=== PATIENT | female | born 1960 | race Asian ===

== ENCOUNTER 2018-09-15 06:05 | Inpatient (IN) | payer SELFPAY, OTHER, MEDICAID ==
[2018-09-15] MEDS: ALBUTEROL 0.083% (NEB) 2.5 MG/3 ML AMP NEB (07:22)
[2018-09-15 08:34] LABS: ADD MAN DIFF? NO
[2018-09-15 08:41] LABS: WHITE BLOOD COUNT 9.9 10^3/ul (4.8-10.8)
[2018-09-15 08:41] LABS: AADO2 Arterial 36.2 mmHg (7.0-24.0); Allen Test ACCEPTAB; Arterial Blood Gas Oxygen Sat 92.8 mmHG (95.0-98.0); Arterial COHb 0.6 % (0.0-3.0); Arterial HCO3 27.6 mmol/L (22.0-26.0); Arterial MetHb 0.3 % (0.0-1.5); Arterial Total Hemglobin 15.6 g/dl (12.0-18.0); Arterial pCO2 42.1 mmhg (35-45); BASOPHILS % 0.3 % (0.0-2.0); EOSINOPHILS % 0.1 % (0.0-7.0); HEMATOCRIT 47.6 % (37.0-47.0); HEMOGLOBIN 15.1 g/dl (12.0-16.0); LYMPHOCYTES # 1.7 10^3/ul (0.8-2.9); LYMPHOCYTES % 17.2 % (15.0-51.0); MEAN CORPUSCULAR HEMOGLOBIN 31.9 pg (29.0-33.0); MEAN CORPUSCULAR HGB CONC 31.7 g/dl (32.0-37.0); MEAN CORPUSCULAR VOLUME 100.4 fl (82.0-101.0); MEAN PLATELET VOLUME 8.9 fl (7.4-10.4); MODE ROOM AIR; MONOCYTE # 0.9 10^3/ul (0.3-0.9); MONOCYTES % 9.5 % (0.0-11.0); NEUTROPHIL # 7.2 10^3/ul (1.6-7.5); NEUTROPHILS % 72.5 % (39.0-77.0); PLATELET COUNT 264 10^3/UL (140-415); RED BLOOD COUNT 4.74 10^6/ul (4.20-5.40); RED CELL DISTRIBUTION WIDTH 11.6 % (11.5-14.5); Site Left Radial
[2018-09-15 09:04] LABS: ANION GAP 8 (5-13); BLOOD UREA NITROGEN 4 mg/dl (7-20); CALCIUM 9.4 mg/dl (8.4-10.2); CARBON DIOXIDE 32 mmol/L (21-31); CHLORIDE 102 mmol/L (97-110); CREATININE 0.61 mg/dl (0.44-1.00); Estimated GFR > 60 mL/min (>60); GLUCOSE 104 mg/dl (70-220); POTASSIUM 3.5 mmol/L (3.5-5.1); SODIUM 142 mmol/L (135-144)
[2018-09-15 09:15] LABS: TROPONIN-I < 0.012 ng/ml (0.000-0.120)
[2018-09-15] MEDS ORDERED: ONDANSETRON 4 MG INJ IV ×2 (09:30→11:30)
[2018-09-15] MEDS ORDERED: ACETAMINOPHEN 325 MG TAB PO ×2 (09:30→11:30)
[2018-09-15] MEDS ORDERED: NON-FORMULARY/PATIENT OWN MED (Temazepam* 15 MG) PO (11:30)
[2018-09-15] MEDS ORDERED: IMMUNE GLOBULIN (HUMAN) 6 GM INJ IV (11:30)
[2018-09-15] MEDS ORDERED: hydrALAzine 20 MG INJ IV (11:30)
[2018-09-15] MEDS: ARFORMOTEROL TARTRATE 15MCG/2 ML AMP NEB ×2 (14:00→20:37)
[2018-09-15] MEDS: SOD CHLORIDE 0.9% 500 ML IV ×2 (17:42→21:07)
[2018-09-15] MEDS: STERILE IV (18:50)
[2018-09-15] MEDS: IMMUNE GLOBULIN GAMMA IV (18:50)
[2018-09-15] MEDS: ALBUTEROL 0.083% (NEB) 2.5 MG/3 ML AMP HHN ×2 (20:37→23:41)
[2018-09-15] MEDS: DOCUSATE SODIUM 100 MG CAP PO (21:00)
[2018-09-15] MEDS: CEFEPIME 1GM/50 ML (PMX) 50 ML IVPB (21:04)
[2018-09-15] MEDS: MYCOPHENOLATE 250 MG CAP PO (21:04)
[2018-09-16 05:26] LABS: ADD MAN DIFF? NO
[2018-09-16 05:30] LABS: BASOPHILS % 0.3 % (0.0-2.0); HEMATOCRIT 43.7 % (37.0-47.0); HEMOGLOBIN 13.8 g/dl (12.0-16.0); LYMPHOCYTES # 0.8 10^3/ul (0.8-2.9); LYMPHOCYTES % 13.6 % (15.0-51.0); MEAN CORPUSCULAR HEMOGLOBIN 32.2 pg (29.0-33.0); MEAN CORPUSCULAR HGB CONC 31.6 g/dl (32.0-37.0); MEAN CORPUSCULAR VOLUME 102.1 fl (82.0-101.0); MEAN PLATELET VOLUME 9.3 fl (7.4-10.4); MONOCYTE # 0.8 10^3/ul (0.3-0.9); MONOCYTES % 12.5 % (0.0-11.0); NEUTROPHIL # 4.5 10^3/ul (1.6-7.5); NEUTROPHILS % 73.1 % (39.0-77.0); PLATELET COUNT 231 10^3/UL (140-415); RED BLOOD COUNT 4.28 10^6/ul (4.20-5.40); RED CELL DISTRIBUTION WIDTH 11.8 % (11.5-14.5)
[2018-09-16 05:30] LABS: WHITE BLOOD COUNT 6.1 10^3/ul (4.8-10.8)
[2018-09-16 05:41] LABS: HEMOGLOBIN A1C 5.1 % (0-5.9)
[2018-09-16] MEDS: PANTOPRAZOLE (EC) 40 MG TAB PO (05:51)
[2018-09-16 06:07] LABS: ALANINE AMINOTRANSFERASE 17 IU/L (13-69); ALBUMIN/GLOBULIN RATIO 1.21; ALKALINE PHOSPHATASE 50 IU/L (42-121); ANION GAP 10 (5-13); ASPARTATE AMINO TRANSFERASE 32 IU/L (15-46); BILIRUBIN,INDIRECT 0.6 mg/dl (0-1.1); BILIRUBIN,TOTAL 0.6 mg/dl (0.2-1.3); BLOOD UREA NITROGEN 10 mg/dl (7-20); CALCIUM 8.9 mg/dl (8.4-10.2); CARBON DIOXIDE 26 mmol/L (21-31); CHLORIDE 104 mmol/L (97-110); CREATININE 0.67 mg/dl (0.44-1.00); Estimated GFR > 60 mL/min (>60); GLUCOSE 72 mg/dl (70-220); MAGNESIUM 1.9 mg/dl (1.7-2.5); POTASSIUM 4.2 mmol/L (3.5-5.1); SODIUM 140 mmol/L (135-144); TOTAL PROTEIN 7.3 g/dl (6.1-8.1)
[2018-09-16 06:28] LABS: THYROID STIMULATING HORMONE 0.834 MIU/L (0.465-4.680)
[2018-09-16] MEDS ORDERED: VANCOMYCIN IV PER PHARMACY XX (07:00)
[2018-09-16] MEDS: ALBUTEROL 0.083% (NEB) 2.5 MG/3 ML AMP HHN ×3 (08:12→17:21)
[2018-09-16] MEDS: ASPIRIN 81 MG TAB PO (08:35)
[2018-09-16] MEDS: VANCOMYCIN 1 GM 250 ML IVPB (08:35)
[2018-09-16] MEDS: predniSONE 10 MG TAB PO (08:36)
[2018-09-16] MEDS: MYCOPHENOLATE 250 MG CAP PO ×2 (08:36→21:34)
[2018-09-16] MEDS: LOSARTAN 25 MG TAB PO (08:36)
[2018-09-16] MEDS: DOCUSATE SODIUM 100 MG CAP PO ×2 (08:37→21:00)
[2018-09-16] MEDS: ARFORMOTEROL TARTRATE 15MCG/2 ML AMP NEB ×2 (10:44→21:21)
[2018-09-16] MEDS: CEFEPIME 1GM/50 ML (PMX) 50 ML IVPB ×2 (11:53→21:35)
[2018-09-16] MEDS: SOD CHLORIDE 0.9% 500 ML IV (16:30)
[2018-09-16] MEDS: IMMUNE GLOBULIN GAMMA IV (18:04)
[2018-09-16] MEDS: STERILE IV (18:04)
[2018-09-16] MEDS: ZOLPIDEM 5 MG TAB PO (21:34)
[2018-09-17] MEDS: VANCOMYCIN 500MG/NS (PMX) 100 ML IVPB ×2 (00:39→07:55)
[2018-09-17] MEDS: PANTOPRAZOLE (EC) 40 MG TAB PO (06:14)
[2018-09-17] MEDS: ARFORMOTEROL TARTRATE 15MCG/2 ML AMP NEB ×2 (08:16→20:06)
[2018-09-17] MEDS: ASPIRIN 81 MG TAB PO (08:37)
[2018-09-17] MEDS: MYCOPHENOLATE 250 MG CAP PO ×2 (08:38→21:08)
[2018-09-17] MEDS: DOCUSATE SODIUM 100 MG CAP PO ×2 (08:38→21:00)
[2018-09-17] MEDS: predniSONE 10 MG TAB PO (08:38)
[2018-09-17] MEDS: LOSARTAN 25 MG TAB PO ×2 (08:39→22:38)
[2018-09-17] MEDS: CEFEPIME 1GM/50 ML (PMX) 50 ML IVPB (10:32)
[2018-09-17] MEDS: SOD CHLORIDE 0.9% 500 ML IV (16:46)
[2018-09-17] MEDS: STERILE IV (17:49)
[2018-09-17] MEDS: IMMUNE GLOBULIN GAMMA IV (17:49)
[2018-09-17] MEDS: TEMAZEPAM 15 MG CAP PO (21:08)
[2018-09-18] MEDS: PANTOPRAZOLE (EC) 40 MG TAB PO (06:24)
[2018-09-18] MEDS: MYCOPHENOLATE 250 MG CAP PO ×2 (08:09→21:16)
[2018-09-18] MEDS: predniSONE 10 MG TAB PO (08:09)
[2018-09-18] MEDS: ASPIRIN 81 MG TAB PO (08:09)
[2018-09-18] MEDS: DOCUSATE SODIUM 100 MG CAP PO ×2 (08:12→20:27)
[2018-09-18] MEDS: ARFORMOTEROL TARTRATE 15MCG/2 ML AMP NEB ×2 (09:16→20:10)
[2018-09-18] MEDS: MUPIROCIN 2% 22 GM OINT TOP ×2 (11:54→21:16)
[2018-09-18] MEDS: SOD CHLORIDE 0.9% 500 ML IV (16:34)
[2018-09-18] MEDS: STERILE IV (17:51)
[2018-09-18] MEDS: IMMUNE GLOBULIN GAMMA IV (17:51)
[2018-09-18] MEDS ORDERED: MUPIROCIN 2% 22 GM OINT TOP (21:00)
[2018-09-18] MEDS: LOSARTAN 25 MG TAB PO (21:16)
[2018-09-18] MEDS: TEMAZEPAM 15 MG CAP PO (22:31)
[2018-09-19] MEDS: PANTOPRAZOLE (EC) 40 MG TAB PO (06:23)
[2018-09-19] MEDS: MYCOPHENOLATE 250 MG CAP PO (08:19)
[2018-09-19] MEDS: ASPIRIN 81 MG TAB PO (08:20)
[2018-09-19] MEDS: predniSONE 10 MG TAB PO (08:20)
[2018-09-19] MEDS: DOCUSATE SODIUM 100 MG CAP PO ×2 (08:20→08:21)
[2018-09-19] MEDS: MUPIROCIN 2% 22 GM OINT TOP (08:25)
[2018-09-19] MEDS: ARFORMOTEROL TARTRATE 15MCG/2 ML AMP NEB (10:06)
[2018-09-19] MEDS: SOD CHLORIDE 0.9% 500 ML IV (13:27)
[2018-09-19] MEDS: STERILE IV (14:24)
[2018-09-19] MEDS: IMMUNE GLOBULIN GAMMA IV (14:24)
== END 2018-09-19 17:35 | disposition home or self-care (01) | DRG 57 ==
LOC: E/R 06:05 → 6WM 09-16 16:38 → ICU 09:23
PROC: 30233S1 Transfusion of Nonautologous Globulin into Peripheral Vein, Percutaneous Approach (ICD-10-PCS; principal; 2018-09-15)
PROC: 4A033R1 Measurement of Arterial Saturation, Peripheral, Percutaneous Approach (ICD-10-PCS; 2018-09-15)
DX: G70.01 Myasthenia gravis with (acute) exacerbation (principal); I10 Essential (primary) hypertension; Z87.891 Personal history of nicotine dependence
CPT/HCPCS: 36415; 36600; 71045; 80048; 80053; 82803; 83036; 83735; 84443; 84484; 85025; 87040; 87081; 93005; 94150; 94640; 94664; 99291-25